=== PATIENT | male | born 1955 | race Caucasian/White ===

== ENCOUNTER → 2019-08-17 | Outpatient (CLI) | payer OTHER ==
[~2019-08-17] MED LIST: BUFFERED ASPIR325 M1 PO; CEPHALEXIN500 M1 PO; LIPITOR 10MG10 MG PO; PLAQUENIL; PREDNISONE20 MG PO
== END ==
LOC: COL.RAD 08:30
DX: M19.031 Primary osteoarthritis, right wrist (principal)
CPT/HCPCS: J3301; Q9967